=== PATIENT | male | born 1950 | race African-American/Black ===

== ENCOUNTER 2021-04-04 19:06 | Emergency (ER) | payer MEDICARE ==
[~2021-04-04] VITALS: Ht 180.3 cm; Wt 74.8 kg
[~2021-04-04 19:06] MED LIST: AMLODIPINE BESYL5 MG PO; ASPIRIN EC325 M1; CLARITIN10 MG PO; DIPHENHYDRAMINE25 M3 PO; LISINOPRIL-HCT1 EAC1 PO; LOPRESSOR25 PO; NORCO 5-325 TA1 EACH PO; PENICILLIN VK500 M1 PO; ZOCOR 20 MG TAB20 M1 PO
[2021-04-04 19:46] LABS: INFLUENZA A ANTIGEN Negative (Negative); INFLUENZA B ANTIGEN Negative (Negative)
[2021-04-04] MEDS ORDERED: TESSALON PERLE100 MG PO (20:51)
[2021-04-04] MEDS ORDERED: VENTOLIN HFA 1818 GM INH (20:51)
[2021-04-04 20:59] VITALS: BP 113/60
== END 2021-04-04 21:00 | disposition home or self-care (01) ==
LOC: M.ERS 19:06
PROVIDERS: Emergency Medicine
DX: U07.1 COVID-19 (principal); I10 Essential (primary) hypertension; Z79.899 Other long term (current) drug therapy